=== PATIENT | female | born 1935 ===

== ENCOUNTER 2022-10-28 23:56 | Inpatient (IN) | payer MEDICARE ==
[~2022-10-28] VITALS: Ht 157.5 cm; Wt 48.3 kg
--- NOTE | 2022-10-29 11:01 | NUR ---
PT ADMITTED TO ROOM 362. PT A/O X 4, BEDREST ON 2 LPM VIA NC WITH SATS AT 97%. PT ARRIVED WITH WEIR CATHETER AND REPORTED IT WAS PLACED BECAUSE SHE COULD NOT GET OOB AND WAS GOING TO THE BATHROOM A LOT. PT DENIES PAIN, SOB AND IS IN NO APPARENT DISTRESS. ORIENTED TO ROOM/CALL LIGHT. BED ALARM SET. NOTIFIED PT ARRIVED FROM [place] VIA AIR FLIGHT.
[2022-10-29 11:53] LABS: BASOPHILS ABSOLUTE AUTO 0.03 K/mm3 (0.00-0.23); BASOPHILS PERCENT AUTO 0 % (0-2); EOSINOPHILS PERCENT AUTO 0 % (0-6); Hematocrit 40.8 % (33.0-51.0); Hemoglobin 13.9 g/dL (11.5-16.0); IMMATURE GRAN ABSOLUTE AUTO 0.05 K/mm3 (0.00-0.10); IMMATURE GRAN PERCENT AUTO 1 % (0-1); LYMPHOCYTES ABSOLUTE AUTO 1.05 K/mm3 (0.84-5.20); LYMPHOCYTES PERCENT AUTO 11 % (21-46); MONOCYTES ABSOLUTE AUTO 0.97 K/mm3 (0.16-1.47); MONOCYTES PERCENT AUTO 10 % (4-13); Mean Corpuscular HGB 32.6 pg (26.0-34.0); Mean Corpuscular HGB Conc 34.1 g/dL (31.5-36.5); Mean Corpuscular Volume 96 fL (80-100); Mean Platelet Volume 11.6 fL (9.1-12.4); NEUTROPHILS PERCENT AUTO 78 % (41-73); Platelet Count 131 K/mm3 (150-400); RDW Coefficient Variation 13.7 % (11.7-14.2); RDW Standard Deviation 48.2 fL (35.1-46.3); Red Blood Cell Count 4.26 M/mm3 (3.80-5.20)
[2022-10-29 12:03] LABS: Base Excess Venous 7.7 mmol/L; Bicarbonate Venous 29.1 mmol/L (24.0-30.0); PCO2 Venous 53.7 mmHg (38-42); pH Blood Venous 7.39 (7.34-7.37)
[2022-10-29 12:05] LABS: D-Dimer, Quantitative 1.94 mg/L FEU (0.00-0.52); International Normalized Ratio 1.17; Prothrombin Time Results 12.2 Sec (9.7-11.5)
[2022-10-29 12:16] LABS: Magnesium, Blood 1.9 mg/dL (1.6-2.4)
[2022-10-29 12:29] LABS: Albumin, Blood 3.6 g/dL (3.4-5.0); Albumin/Globulin Ratio 1.4 (0.8-1.8); Bilirubin, Total 0.6 mg/dL (0.1-1.0); Bun/Creatinine Ratio 37.1 (12.0-20.0); C-REACTIVE PROTEIN, EXT RANGE 2.32 mg/dL (0.000-0.300); Calcium, Blood 8.9 mg/dL (8.5-10.1); Creatinine, Blood 0.62 mg/dL (0.40-1.00); Globulin, Blood 2.6 g/dL (2.2-4.0); Potassium, Blood 3.4 mmol/L (3.5-5.5); Total Protein, Blood 6.2 g/dL (6.4-8.2)
[2022-10-29] MEDS ORDERED: METO25ER PO (12:37)
[2022-10-29] MEDS ORDERED: PRED5 PO (12:37)
[2022-10-29] MEDS ORDERED: ENTRESTO 24 MG1 EACH PO (12:38)
[2022-10-29] MEDS ORDERED: ROSU5 PO (12:38)
[2022-10-29 19:07] LABS: Anti-Xa UFH, PHA Monitoring <0.10 IU/mL
--- NOTE | 2022-10-29 19:30 | NUR ---
LAB CALLED WITH LATEST TROP LEVEL: 446, DOWN FROM PREVIOUS OF 519. ALSO REPORTED PT HAD DARK TARRY STOOL, UNABLE TO GET SAMPLE FOR GUIAC. WILL SEND SAMPLE SAMEER. NOTIFIED, DR GONZALEZ ORDERED TO START HEPARIN DRIP PREVIOUSLY ORDERED AND TO GET HGB 2 HRS AFTER STARTING DRIP. IF HGB DROPPING, CALL MD FOR F/U ORDERS - POSSIBE DC HEP DRIP, ETC. PT ASYMPTOMATIC AT TIS TIME. CALL LIGHT IN REACH. ISOLATION PRECAUTIONS MAINTAINED
--- NOTE | 2022-10-29 19:35 | NUR ---
SHIFT SUMMARY: PT A/O X 4, STANDBY ASSIST TO [facility]. PT ON 1 LPM VIA IA. PT HAS DENIED SOB, CP THROUGHOUT SHIFT. PT DID HAVE TROPONIN LABS TREND DOWN WITH LAST TROPONIN VALUE AT 446. PT HAD LOOSE LIQUID DARK BN TARRY APPEARING STOOL WITH MIX OF BROWN STOOL. NOTIFIED AND ORDER RECEIVED TO [facility] STOOL. PT HAD 2ND BM BUT DID NOT MAKE TO [facility] AND ENDED UP HAVING INCONTINENT EPISODE ON THE FLOOR ON THE WAY TO BSC. PT RECEIVED LASIX AND TOLERATED WELL DENIED S.S OF DIZZINESS WITH ADMINISTRATION. BED ALARM ON FOR SAFETY, REPORTED TO ONCOMING RN CONCERNS OF STOOL. CLARIFICATION RECEIVED FROM DR. GONZALEZ TO CONTINUE HEPARIN DRIP ORDERED AND RECHECK HGB 2 HOURS POST STARTING HEPARIN.
[2022-10-29 21:33] LABS: Source, Urine Clean Catch
[2022-10-29 21:36] LABS: Bilirubin, Urine Neg (Neg); Blood, Urine 3+ (Neg); Glucose Qualitative, Urine Neg (Neg); Ketones, Urine Neg (Neg); Leukocyte Esterase, Urine Neg (Neg); Nitrite, Urine Neg (Neg); Protein, Urine 2+ (Neg); Specific Gravity, Urine 1.015 (1.003-1.022); Urobilinogen, Urine NORM (Normal)
[2022-10-29 21:43] LABS: Appearance, Urine Clear (Clear); Color, Urine Yellow (P-Yellow)
[2022-10-29 21:54] LABS: Bacteria Not Seen /hpf; Squamous Epithelial Cells Not Seen /hpf (Few); White Blood Cells, Urine Not Seen /hpf (0-5)
[2022-10-29 22:54] LABS: Hemoglobin 12.9 g/dL (11.5-16.0)
--- NOTE | 2022-10-30 00:11 | NUR ---
H/H WNL. HEPARIN DRIP CONTINUING. HAS BEEN RESTING QUIETLY. ASYMPTOMATIC. CALL LIGHT IN REACH
[2022-10-30 02:02] LABS: BASOPHILS ABSOLUTE AUTO 0.02 K/mm3 (0.00-0.23); BASOPHILS PERCENT AUTO 0 % (0-2); EOSINOPHILS ABSOLUTE AUTO 0.01 K/mm3 (0.00-0.68); EOSINOPHILS PERCENT AUTO 0 % (0-6); Hematocrit 40.8 % (33.0-51.0); Hemoglobin 14.1 g/dL (11.5-16.0); IMMATURE GRAN ABSOLUTE AUTO 0.02 K/mm3 (0.00-0.10); IMMATURE GRAN PERCENT AUTO 0 % (0-1); LYMPHOCYTES ABSOLUTE AUTO 1.47 K/mm3 (0.84-5.20); LYMPHOCYTES PERCENT AUTO 23 % (21-46); MONOCYTES ABSOLUTE AUTO 0.76 K/mm3 (0.16-1.47); MONOCYTES PERCENT AUTO 12 % (4-13); Mean Corpuscular HGB 32.8 pg (26.0-34.0); Mean Corpuscular HGB Conc 34.6 g/dL (31.5-36.5); Mean Corpuscular Volume 95 fL (80-100); Mean Platelet Volume 11.2 fL (9.1-12.4); NEUTROPHILS ABSOLUTE AUTO 4.06 K/mm3 (1.96-9.15); NEUTROPHILS PERCENT AUTO 64 % (41-73); Platelet Count 119 K/mm3 (150-400); RDW Coefficient Variation 13.6 % (11.7-14.2); RDW Standard Deviation 47.9 fL (35.1-46.3); White Blood Cell Count 6.34 K/mm3 (4.00-11.30)
[2022-10-30 02:12] LABS: Bun/Creatinine Ratio 42.2 (12.0-20.0); Calcium, Blood 8.5 mg/dL (8.5-10.1); Creatinine, Blood 0.62 mg/dL (0.40-1.00); Magnesium, Blood 1.7 mg/dL (1.6-2.4); Potassium, Blood 3.6 mmol/L (3.5-5.5)
--- NOTE | 2022-10-30 02:34 | NUR ---
LAB IN TO DRAW BLOOD, NOTED PT HAD PULLED OUT IV. PHARMACY NOTIFIED, NEW IV PLACED, HEPARIN DRIP ADJUSTED PER PHARM. SEE MAR FOR DETAILS
--- NOTE | 2022-10-30 04:35 | NUR ---
COBOL DEVELOPER SUMMARY VSS. ALERT AND ORIENTED. HARD OF HEARING. UP TO BEDSIDE COMMODE BY SELF A FWE TIMES. NOTE LIQUID STOOL. UA SENT TO LAB. TROPONIN LEVELS DROPPING - SEE LAB INFO. MD ORDERED HEPARIN DRIP, WAS STARTED, THEN PT ACCIDENTLY PULLED OUT IV. NEW IV PLACED, PHARMACY NOTIFIED, NEW ORDERS ENERED - SEE MAR FOR DETAILS. CURRENTLY HEPARIN DRIP CONTINUES. NO NOTED ACUTE DISTRESS. HAS BEEN RESTING QUETLY WITH FEW INTERRUPTIONS SINCE IV ISSUE EARLIER. CALL LIGHT IN REACH. ISOLATION PRECAUTIONS MAINTAINED. WILL CONTINUE TO MONITOR
[2022-10-30 09:35] LABS: Albumin, Blood 3.1 g/dL (3.4-5.0); Albumin/Globulin Ratio 1.3 (0.8-1.8); Bilirubin, Total 0.7 mg/dL (0.1-1.0); Bun/Creatinine Ratio 42.4 (12.0-20.0); Calcium, Blood 8.6 mg/dL (8.5-10.1); Creatinine, Blood 0.57 mg/dL (0.40-1.00); Globulin, Blood 2.4 g/dL (2.2-4.0); Potassium, Blood 3.5 mmol/L (3.5-5.5); Total Protein, Blood 5.5 g/dL (6.4-8.2)
--- NOTE | 2022-10-30 14:55 | NUR ---
DR. GONZALEZ NOTIFIED PT BP 93/68, PER OXYGEN EQUIPMENT TECHNICIAN TOO LOW TO COMPLETE 2ND PART OF STRESS TEST. CLARIFICATION RECEIVED ON 1800 LASIX BP PARAMETERS TO GIVE AND DR. GONZALEZ RECOMMENDED HOLDING LASIX IF SBP IS LESS THAN 105. NO FURTHER ORDERS AT THIS TIME.
--- NOTE | 2022-10-30 18:18 | NUR ---
SHIFT SUMMARY: PT A/O X 4 IND IN ROOM AT THIS TIME. PT REPORTS FEELING AT HER BASELINE HOWEVER SHE STILL NEEDS 1 LPM O2 VIA NC DUE TO SATS DROPPING TO 88% ON RA. 95% ON 1 LPM. PT CONTINUES TO HAVE LOOSE STOOLS AND HAS URINATED IN STOOL EACH TIME TODAY SO UNABLE TO GET STOOL SAMPLE. PT CONTINUES TO HAVE LOW BP. HELD ALL MEDICATIONS TODAY DUE TO LOW BP. PT REPORTS SHE HAS NO DIZZINESS, SOB WITH AMBULATION. SHE IS ASYMPTOMATIC. 2ND PART OF STRESS TEST WAS DELAYED DUE TO LOW BP.
[2022-10-30] MEDS ORDERED: TRAZ100 PO (18:40)
[2022-10-30] MEDS ORDERED: FLUTICASONE PRO16 GM (18:40)
[2022-10-30] MEDS ORDERED: AZULFIDINE500 MG PO (18:42)
[2022-10-31 05:20] LABS: BASOPHILS ABSOLUTE AUTO 0.01 K/mm3 (0.00-0.23); BASOPHILS PERCENT AUTO 0 % (0-2); EOSINOPHILS ABSOLUTE AUTO 0.08 K/mm3 (0.00-0.68); EOSINOPHILS PERCENT AUTO 2 % (0-6); Hematocrit 33.8 % (33.0-51.0); Hemoglobin 11.6 g/dL (11.5-16.0); IMMATURE GRAN ABSOLUTE AUTO 0.01 K/mm3 (0.00-0.10); IMMATURE GRAN PERCENT AUTO 0 % (0-1); LYMPHOCYTES ABSOLUTE AUTO 1.12 K/mm3 (0.84-5.20); LYMPHOCYTES PERCENT AUTO 24 % (21-46); MONOCYTES ABSOLUTE AUTO 0.65 K/mm3 (0.16-1.47); MONOCYTES PERCENT AUTO 14 % (4-13); Mean Corpuscular HGB 32.9 pg (26.0-34.0); Mean Corpuscular HGB Conc 34.3 g/dL (31.5-36.5); Mean Corpuscular Volume 96 fL (80-100); Mean Platelet Volume 11.8 fL (9.1-12.4); NEUTROPHILS PERCENT AUTO 60 % (41-73); Platelet Count 103 K/mm3 (150-400); RDW Coefficient Variation 13.5 % (11.7-14.2); RDW Standard Deviation 48.2 fL (35.1-46.3); Red Blood Cell Count 3.53 M/mm3 (3.80-5.20); White Blood Cell Count 4.67 K/mm3 (4.00-11.30)
[2022-10-31 07:10] LABS: HBSAG SCREEN Negative (Negative); HCV AB Non Reactive (Non Reactive); HEP A AB, IGM Negative (Negative); HEP B CORE AB, IGM Negative (Negative)
--- NOTE | 2022-10-31 10:26 | NUR ---
DAUGHTER FIELDED A PHONE CALL FROM PT DAUGHTER LENCHO. THEY ARE STAYING IN THE [facility]. DISCUSSED PLAN OF CARE FOR TODAY. CONTINUE POC.
[2022-11-01] MEDS ORDERED: LOSA25 PO (13:40)
[2022-11-01] MEDS ORDERED: JARDIANCE10 MG PO (13:41)
[2022-11-01] MEDS ORDERED: SPIR25 PO (13:44)
== END 2022-11-01 14:39 | disposition home or self-care (01) | DRG 177 ==
LOC: MEDS 10-29 10:09
PROVIDERS: Student in an Organized Health Care Education/Training Program; ADMIT Internal Medicine
DX: U07.1 COVID-19 (principal); I21.A1 Myocardial infarction type 2; I50.23 Acute on chronic systolic (congestive) heart failure; J96.01 Acute respiratory failure with hypoxia; J96.02 Acute respiratory failure with hypercapnia; R79.1 Abnormal coagulation profile; I44.7 Left bundle-branch block, unspecified; Z66 Do not resuscitate; E87.6 Hypokalemia; M06.9 Rheumatoid arthritis, unspecified; R74.01 Elevation of levels of liver transaminase levels; I95.9 Hypotension, unspecified; I49.3 Ventricular premature depolarization; Z98.890 Other specified postprocedural states; Z90.49 Acquired absence of other specified parts of digestive tract
CPT/HCPCS: 36415; 71045; 71260; 76705; 78451; 80048; 80053; 80074; 81001; 82728; 82803; 83735; 83880; 84145; 84484; 85014; 85018; 85025; 85379; 85520; 85610; 85730; 86140; 87040; 93005; 93010; 93306; 94761; 96374; 96375; 96376; A9270; A9500; G0378; J1644; J1940; Q9967